=== PATIENT | male | born 1995 | race Hispanic/Latino ===

== ENCOUNTER 2020-05-04 08:41 | Emergency (ER) | payer SELFPAY ==
[2020-05-04 08:47] VITALS: BP 144/87; PULSE 101; RESP 18; TEMP 36.6; O2SAT 99
--- NOTE | 2020-05-04 08:56 | ED.NAVMDI ---
HPI - Nausea/Vomiting/Diarrhea General Chief complaint: Nausea/Vomiting/Diarrhea Stated complaint: n/v Time Seen by Provider: 05/04/20 08:56 History of Present Illness HPI Narrative: Nausea, vomiting, diarrhea for the past week. Now associated with intermittent LUQ abdominal pain. Feels like cramping. No sick contacts. No fever. Related Data Allergies Allergy/AdvReac Type Severity Reaction Status Date / Time No Known Allergies Allergy Verified 05/04/20 08:49 Review of Systems Review of Systems: All systems reviewed & are unremarkable except as noted in HPI and below ENT: Denies sore throat Cardiovascular: Cardiovascular: Denies chest pain Respiratory: Respiratory: Denies dyspnea Gastrointestinal: Gastrointestinal: Reports as per HPI Genitourinary: Genitourinary: Reports no additional male genitourinary complaints Neurologic: Reports dizziness PMFSH Social History Social History Gender identity (if verbalized by the patient): Male Exam Const: General: healthy appearing, no acute distress and alert Orientation/consciousness: patient oriented x3 HENMT: Head: normal to inspection Neck: Neck: normal visual inspection and no lymphadenopathy Resp: Effort & Inspection: normal respiratory effort Auscultation: clear to auscultation bilaterally, no rales, no rhonchi and no wheezes Cardio: Jugular venous distension: no JVD Rate: tachycardic Rhythm: regular rhythm GI: Inspection: non-distended GI Palp: Yes Soft to palpation and No Tenderness to palpation present (GI) Skin: General skin exam: normal color Neuro: General: patient oriented x3 and moves all extremities Speech: normal speech Psych: Appearance: well kempt Affect: normal affect Course Vital Signs Vital signs: Vital Signs Temperature 36.6 C 05/04/20 08:47 Pulse Rate 101 H 05/04/20 08:47 Respiratory Rate 18 05/04/20 08:47 Blood Pressure 144/87 H 05/04/20 08:47 Pulse Oximetry 99 05/04/20 08:47 Temperature 36.6 C 05/04/20 08:47 Pulse Rate 60 05/04/20 10:22 Respiratory Rate 14 05/04/20 10:22 Blood Pressure 122/63 05/04/20 10:22 Pulse Oximetry 99 05/04/20 10:22 MDM - Nausea/Vomiting/Diarrhea Differential Diagnosis Differential diagnosis: Likely gastroenteritis, dehydration and other Lab Data Attestation: I reviewed the patient's lab results. Result diagrams: 05/04/20 08:51 05/04/20 08:51 Labs: Lab Results 05/04/20 05/04/20 05/04/20 Range/Units 08:51 08:51 08:59 WBC 9.2 (4.5-10.0) K/mm3 RBC 4.87 (4.6-6.20) M/mm3 Hgb 15.0 (14.0-18.0) g/dL Hct 43.5 (42.0-52.0) % MCV 89.3 (80-100) fl MCH 30.8 (26-34) pg MCHC 34.5 (32-36) g/dl RDW 11.7 (11.5-14.5) % Plt Count 293 (150-375) k/mm3 MPV 10.6 H (7.4-10.4) fl Immature Gran % (Auto) 0.3 (0-0.5) % Neut % (Auto) 59.5 (45.5-73.1) % Lymph % (Auto) 31.0 (18.3-44.2) % [place] % (Auto) 8.0 (2.6-8.5) % Eos % (Auto) 0.7 (0-4.4) % Baso % (Auto) 0.5 (0.2-1.2) % Lymph # (Auto) 2.84 (0.9-3.2) K/mm3 [place] # (Auto) 0.7 H (0.1-0.6) K/mm3 Eos # (Auto) 0.1 (0-0.3) K/mm3 Baso # (Auto) 0.1 (0.0-0.1) K/mm3 Abs Immat Gran (auto) 0.03 (0.00-0.031) K/mm3 Absolute Neuts (auto) 5.4 (1.3-6.7) K/mm3 Absolute Nucleated RBC 0.0 (0.0-0.012) K/mm3 Nucleated RBC % 0.0 (0.0-0.2) % Sodium 142 (137-145) mmol/L Potassium 3.8 (3.4-5.0) mmol/L Chloride 108 H (98-107) mmol/L Carbon Dioxide 25 (22-30) mmol/L Anion Gap 9 (8-16) mmol/L BUN 13 (9-20) mg/dL Creatinine 0.80 (0.7-1.3) mg/dL Estim Creat Clear Calc 136 ml/min Estimated GFR > 60 (59 - ) Glucose 103 (75-110) mg/dL Calcium 9.3 (8.4-10.2) mg/dL Total Bilirubin 0.7 (0.2-1.3) mg/dL AST 34 (17-59) U/L ALT 50 (4-50) U/L Alkaline Phosphatase 72 (38-126) U/L Total Pro
[2020-05-04 09:01] LABS: Basophils Absolute Auto 0.1 K/mm3 (0.0-0.1); Basophils Percent Auto 0.5 % (0.2-1.2); Eosinophils Absolute Auto 0.1 K/mm3 (0-0.3); Eosinophils Percent Auto 0.7 % (0-4.4); Hematocrit 43.5 % (42.0-52.0); Immature Granulocyte Absolute 0.03 K/mm3 (0.00-0.031); Immature Granulocyte Percent A 0.3 % (0-0.5); Lymphocytes Absolute Auto 2.84 K/mm3 (0.9-3.2); Mean Corpuscular HGB Conc 34.5 g/dl (32-36); Mean Corpuscular Hemoglobin 30.8 pg (26-34); Mean Corpuscular Volume 89.3 fl (80-100); Mean Platelet Volume 10.6 fl (7.4-10.4); Monocytes Absolute Auto 0.7 K/mm3 (0.1-0.6); Neutrophils Absolute Auto 5.4 K/mm3 (1.3-6.7); Neutrophils Percent Auto 59.5 % (45.5-73.1); Platelet Count Result 293 k/mm3 (150-375); Red Blood Count 4.87 M/mm3 (4.6-6.20); Red Cell Distribution Width 11.7 % (11.5-14.5); White Blood Count 9.2 K/mm3 (4.5-10.0)
[2020-05-04 09:12] LABS: Alanine Aminotransferase 50 U/L (4-50); Albumin Level 4.9 g/dL (3.5-5.1); Alkaline Phosphatase 72 U/L (38-126); Anion Gap 9 mmol/L (8-16); Aspartate Amino Transferase 34 U/L (17-59); Bilirubin,Total 0.7 mg/dL (0.2-1.3); Blood Urea Nitrogen 13 mg/dL (9-20); Calcium 9.3 mg/dL (8.4-10.2); Carbon Dioxide 25 mmol/L (22-30); Chloride 108 mmol/L (98-107); Estimated CRCL calculation 136 ml/min; Estimated Glomerular Filt Rate > 60; Glucose 103 mg/dL (75-110); Lipase 277 U/L (23-300); Potassium 3.8 mmol/L (3.4-5.0); Sodium 142 mmol/L (137-145)
[2020-05-04 09:13] LABS: Add Urine Microscopic? YES; Appearance Urine Cloudy (Clear); Bacteria Urine Trace /hpf; Bilirubin Urine Negative (Negative); Blood Urine Negative (Negative); Color Urine Amber (Yellow); Glucose Urine UA Negative (Negative); Ketones Urine Negative (Negative); Leukocyte Esterase Ur Negative LEU/UL (Negative); Mucus Urine Heavy /lpf; Nitrate Urine Negative (Negative); Protein Urine 1+ mg/dL (Negative); RBC Urine 0-2 /hpf (0-2); Specific Grav Ur 1.027 (1.001-1.035); WBC Urine 0-3 /hpf
[2020-05-04] MEDS: ONDANSETRON INJ 4 MG/2 ML VIAL IV PUSH (09:27)
[2020-05-04] MEDS: PANTOPRAZOLE SODIUM IV 40 MG VIAL IV PUSH (09:27)
[2020-05-04] MEDS: SODIUM CHLORIDE 0.9% IV 1,000 ML 999 ML IV CONT (09:27)
[2020-05-04 10:00] VITALS: BP 122/79; PULSE 61
[2020-05-04 10:07] VITALS: BP 141/95; PULSE 60
[2020-05-04 10:08] VITALS: BP 132/89; PULSE 62
[2020-05-04 10:22] VITALS: BP 122/63; PULSE 60; RESP 14; O2SAT 99
== END 2020-05-04 10:51 | disposition home or self-care (01) ==
PROVIDERS: Emergency Provider Emergency Medicine; PCP Emergency Medicine
DX: R11.2 Nausea with vomiting, unspecified (principal)
CPT/HCPCS: 36415; 80053; 81001; 83690; 85025; 96361; 96374; 96375; 99284; C9113; J2405; J7030

== ENCOUNTER 2021-02-02 11:52 | Emergency (ER) | payer OTHER, SELFPAY ==
[2021-02-02 12:07] VITALS: BP 133/89; PULSE 93; RESP 16; TEMP 36.8; O2SAT 100
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
[2021-02-02] MEDS: LIDOCAINE HCL 1% LOCAL INJ 20 ML VIAL 10 ML INFILTRATE (12:31)
== END 2021-02-02 13:00 | disposition home or self-care (01) ==
PROVIDERS: Emergency Provider Nurse Practitioner Family
DX: S81.011D Laceration without foreign body, right knee, subsequent encounter (principal); V49.9XXD Car occupant (driver) (passenger) injured in unspecified traffic accident, subsequent encounter
CPT/HCPCS: 99213; G0463

== ENCOUNTER 2021-06-11 23:45 | Emergency (ER) | payer OTHER, SELFPAY ==
[2021-06-12 01:49] VITALS: BP 134/72; PULSE 70; RESP 14; TEMP 37; O2SAT 98
--- NOTE | 2021-06-12 02:19 | ED.MALEGU ---
HPI - Male Genitourinary General Chief complaint: Urogenital-Male Stated complaint: STD Time Seen by Provider: 06/12/21 02:19 Source: patient Mode of arrival: ambulatory Limitations: no limitations History of Present Illness HPI Narrative: Patient is a 26-year-old previously healthy male presenting to the emergency department for evaluation for a confirmed trichomonas exposure. Patient reports a sexual partner tested positive for trichomonas. Patient denies any penile pain or discharge. He denies any testicular pain. Patient denies any lesions or rashes. Denies history of sexually transmitted infection in the past. Patient denies dysuria or hematuria. Related Data Allergies Allergy/AdvReac Type Severity Reaction Status Date / Time No Known Allergies Allergy Verified 06/12/21 01:51 Review of Systems Review of Systems: CONSTITUTIONAL: Denies fever CARDIOVASCULAR: Denies chest pain RESPIRATORY: Denies cough or dyspnea. GASTROINTESTINAL: Denies abdominal pain SKIN: Denies rash MUSCULOSKELETAL: Denies back pain NEUROLOGIC: Denies headache PMFSH Social History Social History Gender identity (if verbalized by the patient): Male Course Vital Signs Vital signs: Vital Signs Temperature 37.0 C 06/12/21 01:49 Pulse Rate 70 06/12/21 01:49 Respiratory Rate 14 06/12/21 01:49 Blood Pressure 134/72 06/12/21 01:49 Pulse Oximetry 98 06/12/21 01:49 Temperature 37.0 C 06/12/21 01:49 Pulse Rate 70 06/12/21 01:49 Respiratory Rate 14 06/12/21 01:49 Blood Pressure 134/72 06/12/21 01:49 Pulse Oximetry 98 06/12/21 01:49 MDM - Male Genitourinary MDM Narrative Medical decision making narrative: Patient presenting for evaluation of exposure to trichomonas but without any symptoms of sexual transmitted infection. No symptoms of urinary tract infection or torsion. After discussion with patient, he would like to be treated empirically and prophylactically for all sexually transmitted infections. He would prefer one-time doses thus we can do 1 g Rocephin, oral Flagyl, azithromycin here in the ER. Patient would not require any antibiotics to go home with. Also obtain urine culture for chlamydia and gonorrhea. Patient then discharged home. Differential Diagnosis Differential diagnosis: Likely urinary tract infection, epididymitis, genital herpes simplex and other (Chlamydia, gonorrhea) Lab Data Labs: Lab Results 06/12/21 06/12/21 Range/Units 02:20 02:20 Urine Color Yellow (Yellow) Urine Appearance Clear (Clear) Urine pH 5.5 (5.0-9.0) Ur Specific [place] >= 1.030 (1.001-1.035) Urine Protein Trace (Negative) mg/dL Urine Glucose (UA) Negative (Negative) mg/dL Urine Ketones Trace (Negative) mg/dL Ur Blood (Man) Negative (Negative) Urine Nitrate Negative (Negative) Urine Bilirubin 1+ H (Negative) Urine Urobilinogen 0.2 (<2.0) mg/dL Leukocyte Esterase Rfl Negative (Negative) PHIL/UL C.trachomatis RNA (TMA) Pending N.gonorrhoeae RNA (TMA) Pending Discharge Plan Discharge Clinical Impression: Trichomonas exposure Patient Disposition: Home, Self-Care Condition: Stable Instructions: Trichomoniasis (ED) Additional Instructions: You have been treated for chlamydia, gonorrhea and trichomonas. These are all one-time medications that you received in the ER and you do not require any further antibiotic treatment. Please contact your primary care physician for follow up from this visit. If you experience worsening pain, vomiting that does not stop, bleeding complications, chest pain, shortness of breath, inability to tolerate your medications please return for reassessment. Take any prescribed medications as directed Stay well-hydrated For fever and pain, you may take Tylenol 500 mg - 1000 mg every 8 hours, and Ibuprofen 400 mg every 6-8 hours as needed for pain. These
[2021-06-12 02:31] LABS: Appearance Urine Clear (Clear); Bilirubin Urine 1+ (Negative); Blood Urine Negative (Negative); Color Urine Yellow (Yellow); Glucose Urine UA Negative (Negative); Ketones Urine Trace mg/dL (Negative); Leukocyte Esterase Ur Negative LEU/UL (Negative); Nitrate Urine Negative (Negative); Protein Urine Trace mg/dL (Negative); Specific Grav Ur >= 1.030 (1.001-1.035); Urobilinogen Urine 0.2 mg/dL (<2.0); pH Urine 5.5 (5.0-9.0)
[2021-06-12 02:38] LABS: Mucus Urine Heavy /lpf; RBC Urine 0-2 /hpf (0-2); Squamous Epithelial Cell Urine Occasional /hpf (Few); WBC Urine 0-3 /hpf
[2021-06-12 02:42] LABS: Add Urine Microscopic? YES
[2021-06-12] MEDS: AZITHROMYCIN 250 MG TABLET 1000 MG PO (02:48)
[2021-06-12] MEDS: metroNIDAZOLE 250 MG TABLET 2000 MG PO (02:48)
[2021-06-12] MEDS: cefTRIAXone 1 GM VIAL IM (02:52)
== END 2021-06-12 03:05 | disposition home or self-care (01) ==
PROVIDERS: Emergency Provider Emergency Medicine
DX: Z20.2 Contact with and (suspected) exposure to infections with a predominantly sexual mode of transmission (principal)
CPT/HCPCS: 81001; 87491; 87591; 96372; 99283; A9270; J0696